=== PATIENT | female | born 1970 | race American Indian/Alaskan Native ===

== ENCOUNTER 2017-03-14 11:06 | Inpatient (IN) | payer OTHER ==
--- NOTE | 2017-03-14 12:17 | PDOC ---
History of Present Illness - General Chief Complaint: Diarrhea Stated Complaint: DIARRHEA Time Seen by Provider: 03/14/17 12:14 History Source: Patient Exam Limitations: No Limitations - History of Present Illness Travel History: No Initial Comments: 03/14/17 13:11 46F with pmh of hysterectomy, multiple hospitalizations for colitis and bowel obstructions presents to the ED for non-stop watery and bloody diarrhea since Monday with no change in frequency, wakes her up at night. No sick contact or family members with similar symptoms. [place] sweaty yesterday but not today. Took aleve and imodium with no relief. Had a 5 days course of Prednisone for 5 days for photosensitivity rash on the arm which stopped monday. Had an MRI pelvis with and without contrast done yesterday by her OBGYN Dr. Donald Cleveland for pelvic pain which showed "Bilateral hydrosalpinges, right larger than left. No evidence of mass. Post hysterectomy". Past History - Past Medical History Allergies/Adverse Reactions: Allergies Allergy/AdvReac Type Severity Reaction Status Date / Time No Known Allergies Allergy Verified 03/14/17 11:23 Home Medications: Ambulatory Orders Losartan Potassium 0 mg PO DAILY 03/14/17 Pantoprazole Sodium 40 mg PO DAILY 03/14/17 Asthma: Yes GI Disorders: Yes (colitis,sbo,gerd) HTN: Yes - Surgical History Abdominal Surgery: Yes (sbo) - Psycho/Social/Smoking Cessation Hx Anxiety: No Suicidal Ideation: No Smoking History: Never smoked Have you smoked in the past 12 months: No Information on smoking cessation initiated: No Hx Alcohol Use: No Drug/Substance Use Hx: No Substance Use Type: None Review of Systems - Review of Systems Constitutional: Yes: Diaphoresis, Fever, Weakness HEENTM: No: Symptoms Reported Respiratory: No: Symptoms reported Cardiac (ROS): No: Symptoms Reported ABD/GI: Yes: See HPI, Blood Streaked Bowels, Diarrhea, Rectal Bleeding, Abdominal cramping : No: Symptoms Reported Musculoskeletal: No: Symptoms Reported Endocrine: No: Symptoms Reported *Physical Exam - Vital Signs Last Vital Signs Temp Pulse Resp BP Pulse Ox 98.4 F 75 18 142/80 100 03/14/17 11:24 03/14/17 11:24 03/14/17 11:24 03/14/17 11:24 03/14/17 11:24 - Physical Exam General Appearance: Yes: Nourished, Appropriately Dressed, Mild Distress HEENT: positive: EOMI, MAEGAN, Normal ENT Inspection Neck: negative: Tender Respiratory/Chest: positive: Lungs Clear, Normal Breath Sounds. negative: Chest Tender, Respiratory Distress Cardiovascular: positive: Regular Rhythm, Regular Rate, S1, S2 Gastrointestinal/Abdominal: positive: Tender, Soft, Increased Bowel Sounds Integumentary: positive: Pale, Cold ED Treatment Course - LABORATORY CBC & Chemistry Diagram: 03/14/17 13:00 03/14/17 13:00 Medical Decision Making - Medical Decision Making 03/14/17 13:24 46F with pmh of recurent obstructions and colitis presents with profuse diarrhea since Monday. CT abdomen with IV and PO contrast indicates pancolitis No out of range WBC or hemoglobin/hematocrit Spoke to Dr. Magdaleno STARR who advised treating for infectious etiology, Flagyl and Cipro 03/14/17 17:33 03/14/17 18:[address] Kendall Tan, PGY2 IM resident who will come assess the patient for admission. *DC/Admit/Observation/Transfer Diagnosis at time of Disposition: Pancolitis - Discharge Dispostion Admit: Yes
[2017-03-14] MEDS ORDERED: LOPERAMIDE HCL 2 MG CAPSULE PO ONE (12:50)
[2017-03-14] MEDS ORDERED: SODIUM CHLORIDE 1,000 ML IV STA (12:52)
[2017-03-14] MEDS ORDERED: LOPERAMIDE HCL 2 MG CAPSULE ONE (13:00)
[2017-03-14 13:19] LABS: BASOPHIL 0.8 % (0-2.0); EOSINOPHIL 3.4 % (0-4.5); MCH 24.3 pg (25.7-33.7); MCHC 31.8 g/dl (32.0-36.0); MEAN CELL VOLUME 76.3 fl (80-96); MEAN PLT VOLUME 9.8 fl (7.5-11.1); NEUTROPHILS 54.7 % (42.8-82.8); PLATELET COUNT 305 K/MM3 (134-434); RDW 14.5 % (11.6-15.6); WHITE BLOOD COUNT 8.7 K/mm3 (4.0-10.0)
[2017-03-14 13:35] LABS: ALK PHOS 55 U/L (45-117); ANION GAP 7 (8-16); BILIRUBIN,TOTAL 0.6 mg/dL (0.2-1.0); CALCIUM 8.6 mg/dL (8.5-10.1); CO2 25 mmol/L (21-32); CREATININE 0.7 mg/dL (0.55-1.02); GLUCOSE,RANDOM 92 mg/dL (74-106); SGOT/AST 17 U/L (15-37); SGPT/ALT 31 U/L (12-78); TOT PROT 7.8 g/dl (6.4-8.2)
--- NOTE | 2017-03-14 13:41 | PDOC ---
Attending Attestation - Resident Resident Name: ClementeDavid - ED Attending Attestation I have performed the following: I have examined & evaluated the patient, The case was reviewed & discussed with the resident, I agree w/resident's findings & plan, Exceptions are as noted - HPI HPI: 03/14/17 13:38 46 F with h/o GERD, HTN, recurrent SBOs and recurrent episodes of colitis, presenting with 3 days of abdominal pain and diarrhea. Pt states that she began to have left sided abdominal pain 3 days ago. Shortly after, she started having diarrhea. Pt states that this is consistent with her prior episodes of colitis. Pt also endorses fevers at home. She felt very warm last night but did not take her temperature. Pt denies N/V. Denies abdominal distention. States that this pain is not similar to her SBO pain. Pt has had multiple surgeries in the past, including multiple LOAs for SBOs. - Physicial Exam PE: 03/14/17 13:39 "GENERAL: Awake, alert, and fully oriented, in no acute distress HEAD: No signs of trauma EYES: PERRLA, EOMI, sclera anicteric, conjunctiva clear ENT: Auricles normal inspection, hearing grossly normal, nares patent, oropharynx clear without exudates. Moist mucosa NECK: Normal ROM, supple, no lymphadenopathy, JVD, or masses LUNGS: Breath sounds equal, clear to auscultation bilaterally. No wheezes, and no crackles HEART: Regular rate and rhythm, normal S1 and S2, no murmurs, rubs or gallops ABDOMEN: Soft, LLQ TTP, normoactive bowel sounds. No guarding, no rebound. No masses EXTREMITIES: Normal range of motion, no edema. No clubbing or cyanosis. No cords, erythema, or tenderness NEUROLOGICAL: Cranial nerves II through XII grossly intact. Normal speech, normal gait SKIN: Warm, Dry, normal turgor, no rashes or lesions noted. " - Medical Decision Making 03/14/17 13:40 46 F with diarrhea and LLQ pain, concerning for recurrent colitis. - Labs, UA - CTAP
[2017-03-14 13:55] LABS: URINE APPEARANCE SLCLOUDY; URINE BILIRUBIN NEGATIVE (NEGATIVE); URINE BLOOD NEGATIVE (NEGATIVE); URINE COLOR YELLOW; URINE GLUCOSE (UA) NEGATIVE (NEGATIVE); URINE KETONE NEGATIVE (NEGATIVE); URINE LEUK ESTERASE NEGATIVE (NEGATIVE); URINE NITRITE NEGATIVE (NEGATIVE); URINE PROTEIN NEGATIVE (NEGATIVE); URINE UROBILINOGEN NEGATIVE mg/dL (0.2-1.0)
[2017-03-14] MEDS ORDERED: metroNIDAZOLE 250 MG TABLET PO ONE (17:08)
[2017-03-14] MEDS ORDERED: CIPROFLOXACIN 500 MG TABLET (RESTRICTED TO ID) PO ONE (17:23)
[2017-03-14] MEDS ORDERED: METRONIDAZOLE 500 MG PREMIXED 100 ML IVPB ONE ×2 (17:23→17:51)
[2017-03-14] MEDS ORDERED: morphine CARPU-JECT 4 MG/1 ML DISP.SYRIN IVPUSH PRN (17:57)
--- NOTE | 2017-03-14 18:09 | HP ---
CHIEF COMPLAINT: abdominal pain with diarrhea GI: Dr. Johnson- [facility] HISTORY OF PRESENT ILLNESS: 46 yo F with significant PMHx of recurrent colitis, h/o SBO, ovarian cyst and HTN presents with 3 day history of diarrhea. She has approx. 15 loose stools since Monday(03/12/17). She states that yesterday in evening she has one large bloody BM and subsequent BM's have a only mild spotting of blood. She endorses subjective fevers and chills. She has chronic history of colitis with 3 admissions in past year. Most recent at [facility] in September of 2016. She sees Dr. Johnson for GI at [facility]. She states last colonoscopy was one year ago and was significant for polypectomy( she says not pre-malignant?). She has not been worked up for colitis in past and not on any UC meds at this time. Denies CP,DEMPSEY, SOB, palpitations, N/V. ER course was notable for: (1)CT abdomen and pelvis shows Pancolotis. (2)Started on Cipro/Flagyl (3)Dr. Dolan GI consulted. Recent Travel:denies PAST MEDICAL HISTORY:recurrent colitis, HTN, GERD PAST SURGICAL HISTORY: Tubal ligation, hysterectomy, removal of adhesions(2010, 2012), Colonoscopy (2015) Social History: Smoking: denies Alcohol:socially Drugs: denies Family History: Allergies No Known Allergies Allergy (Verified 03/14/17 11:23) HOME MEDICATIONS: Home Medications Medication Instructions Recorded Losartan Potassium 0 mg PO DAILY 03/14/17 Pantoprazole Sodium 40 mg PO DAILY 03/14/17 REVIEW OF SYSTEMS CONSTITUTIONAL: fever, chills Absent: , diaphoresis, generalized weakness, malaise, loss of appetite, weight change HEENT: Absent: rhinorrhea, nasal congestion, throat pain, throat swelling, difficulty swallowing, mouth swelling, ear pain, eye pain, visual changes CARDIOVASCULAR: Absent: chest pain, syncope, palpitations, irregular heart rate, lightheadedness , peripheral edema RESPIRATORY: Absent: cough, shortness of breath, dyspnea with exertion, orthopnea, wheezing, stridor, hemoptysis GASTROINTESTINAL:abdominal pain, abdominal distension,diarrhea,melena Absent: , nausea, vomiting, constipation, , hematochezia GENITOURINARY: Absent: dysuria, frequency, urgency, hesitancy, hematuria, flank pain, genital pain MUSCULOSKELETAL: Absent: myalgia, arthralgia, joint swelling, back pain, neck pain SKIN: Absent: rash, itching, pallor HEMATOLOGIC/IMMUNOLOGIC: Absent: easy bleeding, easy bruising, lymphadenopathy, frequent infections ENDOCRINE: Absent: unexplained weight gain, unexplained weight loss, heat intolerance, cold intolerance NEUROLOGIC: Absent: headache, focal weakness or paresthesias, dizziness, unsteady gait, seizure, mental status changes, bladder or bowel incontinence PSYCHIATRIC: Absent: anxiety, depression, suicidal or homicidal ideation, hallucinations. PHYSICAL EXAMINATION Vital Signs - 24 hr 03/14/17 11:24 Temperature 98.4 F Pulse Rate 75 Respiratory 18 Rate Blood Pressure 142/80 O2 Sat by Pulse 100 Oximetry (%) GENERAL: Awake, alert, and fully oriented, mild distress. HEAD: Normal with no signs of trauma. EYES: Pupils equal, round and reactive to light, extraocular movements intact, sclera anicteric, conjunctiva clear. No lid lag. EARS, NOSE, THROAT: Ears normal, nares patent, oropharynx clear without exudates. Moist mucous membranes. NECK: Normal range of motion, supple without lymphadenopathy, JVD, or masses. LUNGS: Breath sounds equal, clear to auscultation bilaterally. No wheezes, and no crackles. No accessory muscle use. HEART: Regular rate and rhythm, normal S1 and S2 without murmur, rub or gallop. ABDOMEN: Soft, LLQ tenderness(+)rebound , mildly distended, normoactive bowel sounds, (+) guarding, , no masses. No hepatomegaly or splenomegaly. MUSCULOSKELETAL: Normal range of motion at all joints. No bony deformities or tenderness. No CVA tenderness. UPPER EXTREMITIES: 2+ pulses, warm, well-perfused. No cyanosis. No clubbing. No peripheral edema. LOWER EXTREMITIES: 2+ pulses, warm, well-perfused. No calf tenderness. No peripheral edema. NEUROLOGICAL: Cranial nerves II-XII intact. Normal speech. gait not observed. . PSYCHIATRIC: Cooperative. Good eye contact. Appropriate mood and affect. SKIN: Warm, dry, normal turgor, no rashes or lesions noted, normal capillary refill. Laboratory Results - last 24 hr 03/14/17 03/14/17 03/14/17 13:00 13:00 13:00 WBC 8.7 RBC 5.11 Hgb 12.4 Hct 39.0 MCV 76.3 L MCH 24.3 L MCHC 31.8 L RDW 14.5 Plt Count 305 MPV 9.8 Neutrophils % 54.7 Lymphocytes % 33.8 Monocytes % 7.3 Eosinophils % 3.4 Basophils % 0.8 Sodium 137 Potassium 4.4 Chloride 105 Carbon Dioxide 25 Anion Gap 7 L BUN 16 Creatinine 0.7 Creat Clearance w eGFR > 60 Random Glucose 92 Calcium 8.6 Total Bilirubin 0.6 AST 17 ALT 31 Alkaline Phosphatase 55 Total Protein 7.8 Albumin 4.0 Urine Color Yellow Urine Appearance Slcloudy Urine pH 5.0 Urine Protein Negative Urine Glucose (UA) Negative Urine Ketones Negative Urine Blood Negative Urine Nitrite Negative Urine Bilirubin Negative Urine Urobilinogen Negative Ur Leukocyte Esterase Negative IMAGING: * EXAM#: TYPE/EXAM: RESULT: [id number] CT/ABDOMEN PELVIS CT WITH CONTR Abdomen and pelvis CT (with contrast) Clinical information: abdominal pain, diarrhea Multiplanar imaging was performed utilizing intravenous and oral contrast. No prior imaging studies are available at this facility for direct comparison. Continuous concentric wall thickening is noted involving the length of the colon including the rectum consistent with colitis. There is possible mild involvement of the ileum. No definite pericolonic/perienteric edema or fluid accumulation is seen. There is no evidence of abscess, pneumoperitoneum, free intraperitoneal fluid or bowel obstruction. Contiguous 4.9 x 3.3 cm and 3.3 x 2.7 cm cystic structures are noted within the right paramedian aspect of the pelvic cul-de-sac. 3.3 x 2.3 cm left adnexal cyst is visualized. There is no obvious associated soft tissue nodularity or thickened internal septation. Status post hysterectomy. There is no definite CT evidence of acute appendicitis. The liver, spleen, pancreas, gallbladder, adrenal glands and kidneys demonstrate no discrete abnormality. There is no aortic aneurysm. No definite lymphadenopathy is identified. Impression: Pancolitis is identified as discussed above. There is also equivocal mild involvement of the ileum. Contiguous cystic structures are seen within the right paramedian aspect of the pelvic cul-de-sac. Correlation with nonemergent sonography is suggested. Reported By: Fili Ponce MD 03/14/17 0304 ASSESSMENT/PLAN: 46 yo f with signifcant PMHx of recurrent colitis, GERD and HTN admitted for pancolitis seen on abdominal CT. Problem List - Problem (1) Pancolitis Assessment/Plan: * This is chronic issue for which she has seen GI in past but no difinitive diagnosis with biopsy. * Consulted Dr. Dolan for GI * Kept NPO for possible colonoscopy with biopsy * Pain control with Morphine 2mg IV Q4HPRN * IVF with D5 1/2NS @ 83ml/hr. * Will continue antibiotics with Levaquin and Flagyl for now * stool for Ova and parasite * Stool studies pending. * Zofran for nausea. (2) HTN (hypertension) Assessment/Plan: * Held Losartan for now as patient is NPO (3) GERD (gastroesophageal reflux disease) Assessment/Plan: * Will give protonix 40mg IV daily * (4) DVT prophylaxis Assessment/Plan: * Bilateral SCD's * Heparin 5000U subQ for possible colonoscopy tomorrow. Visit type - Emergency Visit Emergency Visit: Yes ED Registration Date: 03/14/17 Care time: The patient presented to the Emergency Department on the above date and was hospitalized for further evaluation of their emergent condition. - New Patient This patient is new to me today: Yes Date on this admission: 03/15/17 - Critical Care Critical Care patient: No
[2017-03-14] MEDS: DEXTROSE 5%-0.45% SALINE 1,000 ML IV SCH (18:51)
--- NOTE | 2017-03-14 19:52 | PN ---
Teaching Attending Note Name of Resident: Kendall Tan ATTENDING PHYSICIAN STATEMENT I saw and evaluated the patient. I reviewed the resident's note and discussed the case with the resident. I agree with the resident's findings and plan as documented. SUBJECTIVE: 46 yo F with Pmhx of recurrent colitis, h/o SBO, ovarian cysts, and HTN pw. Diarrhea. States diarrhea started 3 days ago. States she has had 16 movements. Last [place] was 1 yr ago and according to pt. she has benign polyps. Has not been worked up for Colitis. Follow dmitriy Johnson at [facility]. OBJECTIVE: Physical: VS: Vital Signs Period Temp Pulse Resp BP Sys/Harvey Pulse Ox Last 24 Hr 98.4 F 75-78 18-18 140-142/68-80 99-100 GEN: NAd, Resting in bed HEENT: NCAT, PERRL, Throat without erythema or exudates CARD: RRR S1, S2 RESP: CTAB ABD: BSx4, NTD to palpation EXT: - C/C/e CBCD WBC 8.7 K/mm3 (4.0-10.0) 03/14/17 13:00 RBC 5.11 M/mm3 (3.60-5.2) 03/14/17 13:00 Hgb 12.4 GM/dL (10.7-15.3) 03/14/17 13:00 Hct 39.0 % (32.4-45.2) 03/14/17 13:00 MCV 76.3 fl (80-96) L 03/14/17 13:00 MCHC 31.8 g/dl (32.0-36.0) L 03/14/17 13:00 RDW 14.5 % (11.6-15.6) 03/14/17 13:00 Plt Count 305 K/MM3 (134-434) 03/14/17 13:00 MPV 9.8 fl (7.5-11.1) 03/14/17 13:00 CMP Sodium 137 mmol/L (136-145) 03/14/17 13:00 Potassium 4.4 mmol/L (3.5-5.1) 03/14/17 13:00 Chloride 105 mmol/L (98-107) 03/14/17 13:00 Carbon Dioxide 25 mmol/L (21-32) 03/14/17 13:00 Anion Gap 7 (8-16) L 03/14/17 13:00 BUN 16 mg/dL (7-18) 03/14/17 13:00 Creatinine 0.7 mg/dL (0.55-1.02) 03/14/17 13:00 Creat Clearance w eGFR > 60 (>60) 03/14/17 13:00 Random Glucose 92 mg/dL (74-106) 03/14/17 13:00 Calcium 8.6 mg/dL (8.5-10.1) 03/14/17 13:00 Total Bilirubin 0.6 mg/dL (0.2-1.0) 03/14/17 13:00 AST 17 U/L (15-37) 03/14/17 13:00 ALT 31 U/L (12-78) 03/14/17 13:00 Alkaline Phosphatase 55 U/L (45-117) 03/14/17 13:00 Total Protein 7.8 g/dl (6.4-8.2) 03/14/17 13:00 Albumin 4.0 g/dl (3.4-5.0) 03/14/17 13:00 IMAGING: * EXAM#: TYPE/EXAM: RESULT: [id number] CT/ABDOMEN PELVIS CT WITH CONTR Abdomen and pelvis CT (with contrast) Clinical information: abdominal pain, diarrhea Multiplanar imaging was performed utilizing intravenous and oral contrast. No prior imaging studies are available at this facility for direct comparison. Continuous concentric wall thickening is noted involving the length of the colon including the rectum consistent with colitis. There is possible mild involvement of the ileum. No definite pericolonic/perienteric edema or fluid accumulation is seen. There is no evidence of abscess, pneumoperitoneum, free intraperitoneal fluid or bowel obstruction. Contiguous 4.9 x 3.3 cm and 3.3 x 2.7 cm cystic structures are noted within the right paramedian aspect of the pelvic cul-de-sac. 3.3 x 2.3 cm left adnexal cyst is visualized. There is no obvious associated soft tissue nodularity or thickened internal septation. Status post hysterectomy. There is no definite CT evidence of acute appendicitis. The liver, spleen, pancreas, gallbladder, adrenal glands and kidneys demonstrate no discrete abnormality. There is no aortic aneurysm. No definite lymphadenopathy is identified. Impression: Pancolitis is identified as discussed above. There is also equivocal mild involvement of the ileum. Contiguous cystic structures are seen within the right paramedian aspect of the pelvic cul-de-sac. Correlation with nonemergent sonography is suggested. Reported By: Fili Ponce MD 03/14/17 0637 * Ambulatory Orders Losartan Potassium 0 mg PO DAILY 03/14/17 Pantoprazole Sodium 40 mg PO DAILY 03/14/17 ASSESSMENT AND PLAN: 46 F with hx of recurrent colitis who presents with diarrhea found to have mckeon- colitis 1.) Pancolitis - Levaquin/Flagyl - Follow Stool o&P, Cx and C. Diff - IVF - NPO - GI consulted - Type & Screen 2.) HTN - C/w Home meds 3.) GERD - C/w Protonix 4.) Dvt Ppx - Low Risk- Ambulate Place in Med-sx
[2017-03-14] MEDS ORDERED: morphine CARPU-JECT 4 MG/1 ML DISP.SYRIN ONE (20:11)
[2017-03-14] MEDS: HEPARIN NA (PORCINE) 5,000 UNITS/ML 1ML VIAL SQ SCH (22:05)
[2017-03-14 23:25] VITALS: BMI 33.8
[2017-03-15] MEDS: METRONIDAZOLE 500 MG PREMIXED 100 ML IVPB SCH ×3 (02:43→18:15)
[2017-03-15] MEDS: DEXTROSE 5%-0.45% SALINE 1,000 ML IV SCH ×2 (06:22→20:00)
[2017-03-15 07:29] LABS: BASOPHIL 0.6 % (0-2.0); EOSINOPHIL 5.9 % (0-4.5); MCH 24.4 pg (25.7-33.7); MCHC 32.2 g/dl (32.0-36.0); MEAN CELL VOLUME 75.7 fl (80-96); MEAN PLT VOLUME 9.5 fl (7.5-11.1); NEUTROPHILS 48.6 % (42.8-82.8); PLATELET COUNT 234 K/MM3 (134-434); RDW 14.7 % (11.6-15.6); WHITE BLOOD COUNT 6.6 K/mm3 (4.0-10.0)
[2017-03-15 08:07] LABS: ALBUMIN 3.1 g/dl (3.4-5.0); ANION GAP 8 (8-16); CALCIUM 7.5 mg/dL (8.5-10.1); CO2 26 mmol/L (21-32); GLUCOSE,RANDOM 101 mg/dL (74-106); MAGNESIUM 2.2 mg/dL (1.8-2.4)
[2017-03-15 08:11] LABS: ALK PHOS 43 U/L (45-117); BILIRUBIN,TOTAL 0.7 mg/dL (0.2-1.0); CREATININE 0.6 mg/dL (0.55-1.02); PHOSPHOROUS 2.5 mg/dL (2.5-4.9); SGOT/AST 14 U/L (15-37); SGPT/ALT 32 U/L (12-78); TOT PROT 6.2 g/dl (6.4-8.2)
--- NOTE | 2017-03-15 10:24 | CONSULT ---
Consult Consult Specialty:: GI Referred by:: Arian Reason for Consultation:: acute diarrhea - History of Present Illness History of Present Illness: 46yo woman with PMH of colitis, SBO s/p lysis of adhesions x2, GERD, and HTN ( dx 3m ago) who presents after acute onset of diarrhea 3 days ago. On Monday evening she started to have abdominal cramps. Early Monday morning she was awoken by watery diarrhea. Throughout the day (03/13) she had 15xBMs along with subjective fever, chills, and diaphoresis. Two nights ago (mon, 03/13) she had 1x bloody BM in which she could see bradly blood in the toilet and on the tissue paper. The following BMs had only "flecks of blood". She endorses mild nausea, but continued to eat while at home. The bloody diarrhea prompted her visit to the ED. She denies any recent antibiotic use. No sick contacts and no one in the house has/had diarrhea. She was on vacation in [place] in January and reports getting a "sun rash". She was given a course of prednisone that she completed on Monday (03/11). Denies dysuria, frequency, or hesitation. - History Source History Provided By: Patient, Medical Record Limitations to Obtaining History: No Limitations - Past Medical History Pulmonary: Yes: Asthma (no asmtha releated hospitalizations, Albuterol inhaler PRN) Gastrointestinal: Yes: GERD, Other (colitis (2 prior hospitalizations at [facility]); SBO (9 related hospitalizations and 2 surgeries for adhesion takedown) ) Reproductive: Yes: Fibroids - Past Surgical History Past Surgical History: Yes: Colonoscopy, Hysterectomy, Tubal Ligation Additional Surgical History: -colonoscopy with polpectomy (benign) - 2016. - lysis of adhesions (2010, 2012). -tubal ligation. -ovarian cyst removal. - DIPTI -2005 - Alcohol/Substance Use Hx Alcohol Use: No - Smoking History Smoking history: Never smoked Have you smoked in the past 12 months: No Home Medications - Allergies Allergies/Adverse Reactions: Allergies Allergy/AdvReac Type Severity Reaction Status Date / Time No Known Allergies Allergy Verified 03/14/17 11:23 - Home Medications Home Medications: Ambulatory Orders Losartan Potassium 0 mg PO DAILY 03/14/17 Pantoprazole Sodium 40 mg PO DAILY 03/14/17 Family Disease History - Family Disease History Family History: Unremarkable Other Family History: Father with kidney cancer Review of Systems - Review of Systems Constitutional: reports: Chills, Diaphoresis, Fever Eyes: reports: No Symptoms HENT: reports: No Symptoms Neck: reports: No Symptoms Cardiovascular: reports: No Symptoms Respiratory: reports: No Symptoms Gastrointestinal: reports: Abdominal Pain, Diarrhea, Other (BRBPR) Physical Exam Vital Signs: Vital Signs Temperature 98.0 F 03/15/17 14:00 Pulse Rate 73 03/15/17 14:00 Respiratory Rate 17 03/15/17 14:00 Blood Pressure 112/54 03/15/17 06:00 O2 Sat by Pulse Oximetry (%) 98 03/15/17 09:00 Constitutional: Yes: Well Nourished, No Distress, Calm Eyes: No: Sclera Icterus Cardiovascular: Yes: Regular Rate and Rhythm. No: Gallop, Murmur Respiratory: Yes: CTA Bilaterally Gastrointestinal: Yes: Soft, Abdomen, Obese, Hyperactive Bowel Sounds, Tenderness (L>R). No: Distention Extremities: Yes: Other (UE: b/l papular rash L anterior ankle - tender to palpation w/o erythema, warmth, bruising or rash) Edema: No Peripheral Pulses WNL: Yes (2+ DP/PT bilaterally) Neurological: Yes: Alert, Oriented Labs: CBC, BMP 03/15/17 06:35 03/15/17 06:35 Laboratory Tests 03/14/17 03/14/17 18:40 18:40 ESR 7 C-Reactive Protein 2.3 H Laboratory Tests 03/14/17 03/15/17 13:00 06:35 Calcium 8.6 7.5 L Phosphorus 2.5 Magnesium 2.2 Total Bilirubin 0.6 0.7 AST 17 14 L ALT 31 32 Alkaline Phosphatase 55 43 L D Total Protein 7.8 6.2 L D Albumin 4.0 3.1 L D Urine Color Yellow 03/14/17 13:00 Urine Appearance Slcloudy 03/14/17 13:00 Urine pH 5.0 (5.0-8.0) 03/14/17 13:00 Ur Specific [place] 1.025 (1.005-1.025) 03/14/17 13:00 Urine Protein Negative (NEGATIVE) 03/14/17 13:00 Urine Glucose (UA) Negative (NEGATIVE) 03/14/17 13:00 Urine Ketones Negative (NEGATIVE) 03/14/17 13:00 Urine Blood Negative (NEGATIVE) 03/14/17 13:00 Urine Nitrite Negative (NEGATIVE) 03/14/17 13:00 Urine Bilirubin Negative (NEGATIVE) 03/14/17 13:00 Ur Leukocyte Esterase Negative (NEGATIVE) 03/14/17 13:00 Imaging - Results Cat Scan: Image Reviewed (Abd/pelvis CT w/contrast: concentric wall thickening through colon including recturm c/w colitis. Possible involvement of ileum. No definitive pericolonic/perienteric edema or fluid accumulation is seen. Impression: pancolitis with equivocal involvement of ileum. L adnexal mass.) Assessment/Plan Assessment: 46yo woman who presents acute colitis 2/2 to inflammatory or infectious etiology. Plan: -Advance to Low residue diet -Repeat H/H in evening -F/u Stool studies: C dif toxin/Ag, culture, O&P -Continue Flagyl and levoquin -Trend ESR and CRP d/w Dr. Emerita Noriega MD PGY-1 Visit type - Emergency Visit Emergency Visit: No - New Patient This patient is new to me today: Yes Date on this admission: 03/15/17 - Critical Care Critical Care patient: No
[2017-03-15] MEDS: HEPARIN NA (PORCINE) 5,000 UNITS/ML 1ML VIAL SQ SCH ×2 (10:27→22:17)
[2017-03-15 13:51] LABS: MCH 24.2 pg (25.7-33.7); MCHC 31.8 g/dl (32.0-36.0); MEAN CELL VOLUME 75.8 fl (80-96); MEAN PLT VOLUME 9.5 fl (7.5-11.1); PLATELET COUNT 251 K/MM3 (134-434); RDW 14.6 % (11.6-15.6); WHITE BLOOD COUNT 6.4 K/mm3 (4.0-10.0)
--- NOTE | 2017-03-15 14:20 | PN ---
Teaching Attending Note Name of Resident: Frieda Palencia ATTENDING PHYSICIAN STATEMENT I saw and evaluated the patient. I reviewed the resident's note and discussed the case with the resident. I agree with the resident's findings and plan as documented. SUBJECTIVE:mild nausea but much improvement in abdominal pain. states this is her 3rd episode of colitis. that shes been followed by GI doctor in [place] and had colonoscopy last year. had bx of polyp and was told it was benign but is unaware if they took any other bx or if blood workup was done for cause of colitis. states she always improved after abx therapy. also had multiple SBO which were due to adhesions from previous surgeries but no surgery to fix obstruction and no colectomy performed. denies any recent diet changes or medications. admits to fevers at home with 10 BM per day intermittently bloody with tenesmus. last BM was this AM and was loose but more formed. has problems of constipation at home which improves with miralax. family hx of thyroid disorder denies other autoimmune diseases OBJECTIVE: Last Vital Signs Temp Pulse Resp BP Pulse Ox 98.0 F 73 17 112/54 98 03/15/17 14:00 03/15/17 14:00 03/15/17 14:00 03/15/17 06:00 03/15/17 09:00 General NAD CV S1 S2 RRR no murmur/rub/gallop Lungs CTA B/L no wheezing/rales/rhonchi abdomen soft hyperactive BS + LUQ/LLQ tenderness not distended ASSESSMENT AND PLAN: 46yo F wtih PMH recurrent colitis, SBO and HTN presented to the ER with bloody diarrhea and abdominal pain. 1. Pancolitis- concern for IBD given multiple episodes. ESR normal CRP mildly elevated. significant improvement. informed need for stool studies. on levaquin/ flagyl day 2, IVF. GI consulted. cont symptomatic treatment for now, nausea nd pain control. will place call to GI specialist for workup already done 2. Acute normocytic anemia- likely dilutional. hgb on repeat is stable 3. HTN- currently normotensive off medications. hold oral agents for now 4. DVT ppx- hep sq
[2017-03-15] MEDS ORDERED: SODIUM CHLORIDE 100 ML IVPB ONE (15:38)
[2017-03-15] MEDS ORDERED: PANTOPRAZOLE SODIUM 40 MG VIAL ONE (15:38)
[2017-03-15] MEDS ORDERED: ONDANSETRON 4 MG TABLET PO PRN (15:39)
[2017-03-15] MEDS: PANTOPRAZOLE SODIUM 40 MG in SODIUM CHLORIDE 100 ML IVPB SCH (15:52)
--- NOTE | 2017-03-15 15:55 | PN ---
Physical Exam: SUBJECTIVE: Patient seen and examined at bedside today. States that she is feeling much better- still has LUQ, LLQ pain and has had 1 nonbloody BM since yesterday. OBJECTIVE: Vital Signs Period Temp Pulse Resp BP Sys/Harvey Pulse Ox Last 24 Hr 98.0 F-98.7 F 73-82 14-20 112-140/54-78 98-99 GENERAL: The patient is awake, alert, and fully oriented, in no acute distress. HEAD: Normal with no signs of trauma. EYES: PERRL, extraocular movements intact, sclera anicteric, conjunctiva clear. NECK: Trachea midline, full range of motion, supple. LUNGS: Breath sounds equal, clear to auscultation bilaterally, no wheezes, no crackles, no accessory muscle use. HEART: Regular rate and rhythm, S1, S2 without murmur, rub or gallop. ABDOMEN:tender to palpation in LUQ, LLQ, normoactive bowel sounds, no guarding, no rebound EXTREMITIES: 2+ posterior tibial pulses, warm, well-perfused, no edema. NEUROLOGICAL: Cranial nerves II through XII grossly intact. Laboratory Results - last 24 hr 03/14/17 03/14/17 03/15/17 18:40 18:40 06:35 WBC 6.6 RBC 4.47 Hgb 10.9 D Hct 33.8 MCV 75.7 L MCH 24.4 L MCHC 32.2 RDW 14.7 Plt Count 234 D MPV 9.5 Neutrophils % 48.6 Lymphocytes % 37.0 Monocytes % 7.9 Eosinophils % 5.9 H Basophils % 0.6 ESR 7 Sodium Potassium Chloride Carbon Dioxide Anion Gap BUN Creatinine Creat Clearance w eGFR Random Glucose Calcium Phosphorus Magnesium Total Bilirubin AST ALT Alkaline Phosphatase C-Reactive Protein 2.3 H Total Protein Albumin Blood Type Antibody Screen 03/15/17 03/15/17 03/15/17 06:35 13:38 13:38 WBC 6.4 RBC 4.57 Hgb 11.0 Hct 34.6 MCV 75.8 L MCH 24.2 L MCHC 31.8 L RDW 14.6 Plt Count 251 MPV 9.5 Neutrophils % Lymphocytes % Monocytes % Eosinophils % Basophils % ESR Sodium 139 Potassium 3.9 Chloride 105 Carbon Dioxide 26 Anion Gap 8 BUN 10 D Creatinine 0.6 Creat Clearance w eGFR > 60 Random Glucose 101 Calcium 7.5 L Phosphorus 2.5 Magnesium 2.2 Total Bilirubin 0.7 AST 14 L ALT 32 Alkaline Phosphatase 43 L D C-Reactive Protein Total Protein 6.2 L D Albumin 3.1 L D Blood Type A NEGATIVE Antibody Screen Negative 03/15/17 14:10 WBC RBC Hgb Hct MCV MCH MCHC RDW Plt Count MPV Neutrophils % Lymphocytes % Monocytes % Eosinophils % Basophils % ESR Sodium Potassium Chloride Carbon Dioxide Anion Gap BUN Creatinine Creat Clearance w eGFR Random Glucose Calcium Phosphorus Magnesium Total Bilirubin AST ALT Alkaline Phosphatase C-Reactive Protein Total Protein Albumin Blood Type A NEGATIVE Antibody Screen Active Medications Generic Name Dose Route Start Last Admin Trade Name Freq PRN Reason Stop Dose Admin Heparin Sodium (Porcine) 5,000 unit 03/14/17 22:00 03/15/17 10:27 Heparin - SQ 5,000 unit BID BLAINE Administration Dextrose/Sodium Chloride 1,000 mls @ 83 mls/hr 03/14/17 18:00 03/15/17 06:22 D5-1/2ns - IV 83 mls/hr ASDIR BLAINE Administration Levofloxacin 100 mls @ 100 mls/hr 03/15/17 17:00 Levaquin 500 Mg Premixed Ivpb - IVPB DAILY BLAINE Metronidazole 100 mls @ 100 mls/hr 03/15/17 02:00 03/15/17 10:27 Flagyl 500mg Premixed Ivpb - IVPB 100 mls/hr Q8H-IV BLAINE Administration Pantoprazole Sodium 40 mg/ 100 mls @ 200 mls/hr 03/15/17 15:00 Sodium Chloride IVPB DAILY BLAINE Morphine Sulfate 2 mg 03/14/17 17:57 03/14/17 20:24 Morphine Injection - IVPUSH 2 mg Q4H PRN Administration PAIN ASSESSMENT/PLAN: 46 y/o F with PMH of recurrent colitis, h/o SBO, ovarian cyst and HTN, who was admitted with 3 day history of diarrhea. Pt admitted for pancolitis. #Pancolitis -Abdomen/pelvis CT: continuous concentric wall thickening involving length of colon, including rectum- consistent with colitis, mild ileal involvement, cystic structures in pelvic cul-de-sac -Continue Levaquin 500mg/Flagyl 500mg (Day2) -elevated CRP 2.3. reveals inflammation -Following up with primary GI from [facility], Dr. Johnson to get additional records -On Zofran PRN for nausea #HTN-controlled -will call pharmacy to find out dosage of home losartan dosage, will hold for now since HTN controlled #DVT prophylaxis Heparin 5000 SQ BID F/E/N D5 08/01 NS NPO Monitor electrolytes Visit type - Emergency Visit Emergency Visit: No - New Patient This patient is new to me today: Yes Date on this admission: 03/15/17 - Critical Care Critical Care patient: No
--- NOTE | 2017-03-15 17:16 | PN ---
Teaching Attending Note Name of Resident: Melissa Noriega ATTENDING PHYSICIAN STATEMENT I saw and evaluated the patient. I reviewed the resident's note and discussed the case with the resident. I agree with the resident's findings and plan as documented. SUBJECTIVE: 46F with acute onset of diarrhea starting monday. Noted blood in toilet monday after multiple bowel movements Prior to that uneventful trip to [place]: she did develop a rash on her arms and was treated with prednisone (completed course this past monday) Has a history of ? previous [facility] episodes[facility] and believes that she had a colonoscopy in : no colitis but may have had polyps. Told f/u 3-5 years OBJECTIVE: Afebrile Anicteric Hrt RRR Lungs CTA b/l Abd: Sft, mild TTP left abdomen > right. No guarding/rebound Ext: TTP left anterior ankle without swelling / induration / rash. papular like rash on UE ASSESSMENT Acute diarrhea: Inflammatory vs. Infectious Rash on UE: ? reaction from sun exposure / alternate etiology Left anterior ankle pain PLAN: Stool for O&P, culture, C. Diff Low residue diet Abx for now Monitor clinically. If no continued improvement and pending stool studies may need flex sig to evaluate further Obtain records from previous GI Outpatient f/u w/ Dr. Dolan / [facility] [phone]
[2017-03-15] MEDS: LEVOFLOXACIN 500 MG IVPB 100 ML IVPB SCH (17:22)
[2017-03-15] MEDS ORDERED: ONDANSETRON 4 MG/2 ML VIAL IVPUSH PRN (19:02)
[2017-03-16] MEDS: METRONIDAZOLE 500 MG PREMIXED 100 ML IVPB SCH ×2 (02:13→10:29)
[2017-03-16] MEDS: DEXTROSE 5%-0.45% SALINE 1,000 ML IV SCH ×3 (06:50→19:38)
[2017-03-16 08:53] LABS: MCH 25.1 pg (25.7-33.7); MCHC 33.3 g/dl (32.0-36.0); MEAN CELL VOLUME 75.4 fl (80-96); MEAN PLT VOLUME 10.1 fl (7.5-11.1); PLATELET COUNT 277 K/MM3 (134-434); RDW 14.4 % (11.6-15.6); WHITE BLOOD COUNT 5.3 K/mm3 (4.0-10.0)
[2017-03-16 08:59] LABS: ANION GAP 7 (8-16); CALCIUM 7.6 mg/dL (8.5-10.1); CO2 25 mmol/L (21-32); GLUCOSE,RANDOM 108 mg/dL (74-106)
[2017-03-16 09:01] LABS: CREATININE 0.6 mg/dL (0.55-1.02)
[2017-03-16] MEDS: LEVOFLOXACIN 500 MG IVPB 100 ML IVPB SCH (09:03)
--- NOTE | 2017-03-16 10:16 | PN ---
Progress Note, Physician Chief Complaint: 24H Events: -yesterday: did not tolerate dinner, +n/v -O/N: no events -AM: no n/v/abdominal pains; decreased brian, ate few bites of breakfast; 1x small loose BM - Current Medication List Current Medications: Active Medications Heparin Sodium (Porcine) (Heparin -) 5,000 unit SQ BID [facility] Last Admin: 03/15/17 22:17 Dose: 5,000 unit Dextrose/Sodium Chloride (D5-1/2ns -) 1,000 mls @ 83 mls/hr IV ASDIR [facility] Last Admin: 03/16/17 06:50 Dose: 83 mls/hr Levofloxacin (Levaquin 500 Mg Premixed Ivpb -) 100 mls @ 100 mls/hr IVPB DAILY [facility] Last Admin: 03/16/17 09:03 Dose: 100 mls/hr Metronidazole (Flagyl 500mg Premixed Ivpb -) 100 mls @ 100 mls/hr IVPB Q8H-IV [facility] Last Admin: 03/16/17 02:13 Dose: 100 mls/hr Pantoprazole Sodium 40 mg/ (Sodium Chloride) 100 mls @ 200 mls/hr IVPB DAILY [facility] Last Admin: 03/15/17 15:52 Dose: 200 mls/hr Morphine Sulfate (Morphine Injection -) 2 mg IVPUSH Q4H PRN PRN Reason: PAIN Last Admin: 03/14/17 20:24 Dose: 2 mg Ondansetron HCl (Zofran Injection) 4 mg IVPUSH Q6H PRN PRN Reason: NAUSEA AND/OR VOMITING Last Admin: 03/15/17 22:34 Dose: 4 mg - Objective Vital Signs: Vital Signs Temperature 98.4 F 03/16/17 06:28 Pulse Rate 77 03/16/17 10:00 Respiratory Rate 20 03/16/17 10:00 Blood Pressure 126/68 03/16/17 10:00 O2 Sat by Pulse Oximetry (%) 98 on RA 03/15/17 10:00 Constitutional: Yes: Well Nourished, No Distress Eyes: No: Sclera Icterus Cardiovascular: Yes: Regular Rate and Rhythm. No: Murmur, Rub Respiratory: Yes: CTA Bilaterally Gastrointestinal: Yes: Normal Bowel Sounds, Abdomen, Obese, Tenderness (L>R). No: Distention Extremities: Yes: Other (L anterior ankle ttp) Edema: No Peripheral Pulses WNL: Yes Labs: CBC, BMP 03/16/17 07:30 03/16/17 07:30 Impression/Plan Impression/Plan: Assessment: 46yo woman who presents acute colitis 2/2 to inflammatory or infectious etiology. Plan: -Continue Low residue diet -C dif stool toxin & Ag sent -Stool culture - ordered -Continue Flagyl and levoquin -Trend ESR and CRP d/w Dr. Emerita Noriega MD PGY-1 Visit type - Emergency Visit Emergency Visit: No - New Patient This patient is new to me today: No - Critical Care Critical Care patient: No
[2017-03-16] MEDS ORDERED: PANTOPRAZOLE SODIUM 40 MG VIAL ONE (10:25)
[2017-03-16] MEDS ORDERED: SODIUM CHLORIDE 100 ML IVPB ONE (10:25)
[2017-03-16] MEDS: HEPARIN NA (PORCINE) 5,000 UNITS/ML 1ML VIAL SQ SCH ×2 (10:28→21:37)
[2017-03-16] MEDS: PANTOPRAZOLE SODIUM 40 MG in SODIUM CHLORIDE 100 ML IVPB SCH (10:28)
--- NOTE | 2017-03-16 14:37 | PN ---
Teaching Attending Note Name of Resident: Melissa Noriega ATTENDING PHYSICIAN STATEMENT: I saw and evaluated the patient. I reviewed the resident's note and discussed the case with the resident. I agree with the resident's findings and plan as documented. SUBJECTIVE: No acute events overnight Diminished appetitie this morning w/ nausea and vomiting Had 2 loos BM's today, non-bloody OBJECTIVE: Anicteric Abd: + BS (hyperactive), soft, mild TTP L>R abdomen. No guarding C. Diff negative ASSESSMENT: Acute colitis / diarrhea Clinically some improvement, still with abdominal cramping / loose BM's less frequent however PLAN: Awaiting stool studies Seemed to tolerate lunch. Continue current diet for now Ordered stool O&P If no improvement will need flex sig for further intraluminal evaluation
--- NOTE | 2017-03-16 14:54 | EKG ---
Test Reason : Blood Pressure : / mmHG Vent. Rate : 077 BPM Atrial Rate : 077 BPM P-R Int : 130 ms QRS Dur : 084 ms QT Int : 372 ms P-R-T Axes : 052 026 001 degrees QTc Int : 420 ms NORMAL SINUS RHYTHM NORMAL ECG NO PREVIOUS ECGS AVAILABLE Confirmed by YONY GONSALEZ MD ([id number]) on 03/16/2017 2:54:10 PM Referred By: DR. PERRY Confirmed By:YONY GONSALEZ MD
--- NOTE | 2017-03-16 15:48 | PN ---
Teaching Attending Note Name of Resident: Frieda Palencia ATTENDING PHYSICIAN STATEMENT I saw and evaluated the patient. I reviewed the resident's note and discussed the case with the resident. I agree with the resident's findings and plan as documented. SUBJECTIVE:2 episodes of non bloody emesis last night after drinking clear broth. assoc abdominal pain. slight improvement. diet was advanced to regular diet this AM but only took a single bite. 1 loose BM this AM non bloody. denies CP, SOB, fever, chills, Vomiting OBJECTIVE: Last Vital Signs Temp Pulse Resp BP Pulse Ox 98.0 F 82 17 109/64 95 03/16/17 14:00 03/16/17 14:00 03/16/17 14:00 03/16/17 14:00 03/15/17 20:48 General NAD CV S1 S2 RRR no murmur/rub/gallop Lungs CTA B/L no wheezing/rales/rhonchi abdomen soft hyperactive BS + LUQ/LLQ tenderness not distended ASSESSMENT AND PLAN: 46yo F wtih PMH recurrent colitis, SBO and HTN presented to the ER with bloody diarrhea and abdominal pain. 1. Pancolitis- concern for IBD given multiple episodes. ESR normal CRP mildly elevated. vomiting last night but now resolved. will give another trial of regular diet for lunch if unable to tolerate and continues to have abdominal pain will place NPO for possible flex sig. Stool studies sent this am. will f/ u. awaiting report from private GI for previous workup. on levaquin/flagyl day 3 , IVF. GI on board. will d/c IVF if tolerating diet. 2. Acute normocytic anemia- likely dilutional. Hgb stable 3. HTN- currently normotensive off medications. hold oral agents for now 4. DVT ppx- hep sq
--- NOTE | 2017-03-16 18:16 | PN ---
Physical Exam: SUBJECTIVE: Patient seen and examined at bedside. States that she had 2 episodes of emesis last night, received Zofran. Today pt's appetite is still low , however she is tolerating her diet without emesis. On low residue diet. OBJECTIVE: Vital Signs Period Temp Pulse Resp BP Sys/Harvey Pulse Ox Last 24 Hr 98.0 F-98.4 F 74-89 17-20 106-126/64-78 95 GENERAL: The patient is awake, alert, and fully oriented, in no acute distress. HEAD: Normal with no signs of trauma. EYES: PERRL, extraocular movements intact, sclera anicteric, conjunctiva clear. No ptosis. ENT: Ears normal, nares patent, oropharynx clear without exudates, moist mucous membranes. NECK: Trachea midline, full range of motion, supple. LUNGS: Breath sounds equal, clear to auscultation bilaterally, no wheezes, no crackles, no accessory muscle use. HEART: Regular rate and rhythm, S1, S2 without murmur, rub or gallop. ABDOMEN: mild abdominal tenderness elicited in RUQ, RLQ, mid epigastric region. nondistended, normoactive bowel sounds, no guarding, no rebound, no hepatosplenomegaly, no masses. EXTREMITIES: 2+ posterior tibial pulses, warm, well-perfused, no edema. Mild swelling L ankle, anteriorly. "sunrash" improving on upper extremities bilaterally, no longer itchy NEUROLOGICAL: Cranial nerves II through XII grossly intact. Laboratory Results - last 24 hr 03/16/17 03/16/17 07:30 07:30 WBC 5.3 RBC 4.15 Hgb 10.4 L Hct 31.3 L MCV 75.4 L MCH 25.1 L MCHC 33.3 RDW 14.4 Plt Count 277 MPV 10.1 Sodium 138 Potassium 3.8 Chloride 106 Carbon Dioxide 25 Anion Gap 7 L BUN 6 L D Creatinine 0.6 Random Glucose 108 H Calcium 7.6 L Active Medications Generic Name Dose Route Start Last Admin Trade Name Freq PRN Reason Stop Dose Admin Heparin Sodium (Porcine) 5,000 unit 03/14/17 22:00 03/16/17 10:28 Heparin - SQ 5,000 unit BID BLAINE Administration Dextrose/Sodium Chloride 1,000 mls @ 83 mls/hr 03/14/17 18:00 03/16/17 06:50 D5-1/2ns - IV 83 mls/hr ASDIR BLAINE Administration Levofloxacin 100 mls @ 100 mls/hr 03/15/17 17:00 03/16/17 09:03 Levaquin 500 Mg Premixed Ivpb - IVPB 100 mls/hr DAILY BLAINE Administration Pantoprazole Sodium 40 mg/ 100 mls @ 200 mls/hr 03/15/17 15:00 03/16/17 10:28 Sodium Chloride IVPB 200 mls/hr DAILY BLAINE Administration Morphine Sulfate 2 mg 03/14/17 17:57 03/14/17 20:24 Morphine Injection - IVPUSH 2 mg Q4H PRN Administration PAIN Ondansetron HCl 4 mg 03/15/17 19:02 03/15/17 22:34 Zofran Injection IVPUSH 4 mg Q6H PRN Administration NAUSEA AND/OR VOMITING ASSESSMENT/PLAN: 46 y/o F with PMH of recurrent colitis, h/o SBO, ovarian cyst and HTN, who was admitted with 3 day history of diarrhea. Pt admitted for pancolitis. #Pancolitis secondary to possible IBD -Abdomen/pelvis CT: continuous concentric wall thickening involving length of colon, including rectum- consistent with colitis, mild ileal involvement, cystic structures in pelvic cul-de-sac -Continue Levaquin 500mg (Day3), Flagyl has been DC -elevated CRP 2.3. reveals inflammation -F/u with primary GI from [facility], Dr. Johnson to get additional records- message has been left, will fax papers to get medical records -F/u stool cx, ova and parasites -F/u if tolerating diet still tomorrow can d/c IVF -if no improvement, may need flex sig -On Zofran PRN for nausea #HTN-controlled #DVT prophylaxis Heparin 5000 SQ BID F/E/N D5 1/2 NS Low residue diet Monitor electrolytes Visit type - Emergency Visit Emergency Visit: No - New Patient This patient is new to me today: No - Critical Care Critical Care patient: No
--- NOTE | 2017-03-17 08:14 | PN ---
Teaching Attending Note Name of Resident: Frieda Palencia ATTENDING PHYSICIAN STATEMENT I saw and evaluated the patient. I reviewed the resident's note and discussed the case with the resident. I agree with the resident's findings and plan as documented. SUBJECTIVE: No specific complaints She states that she feels much better OBJECTIVE: Vitals noted ASSESSMENT AND PLAN: Appreciate specification consultant input Continue to attempt to advance diet Awaiting stool studies -- she has not had further diarrhea Change to po antibiotics as soon as possible See resident note for full details
[2017-03-17 08:27] LABS: MCH 24.4 pg (25.7-33.7); MCHC 32.4 g/dl (32.0-36.0); MEAN CELL VOLUME 75.2 fl (80-96); PLATELET COUNT 239 K/MM3 (134-434); RDW 14.4 % (11.6-15.6); WHITE BLOOD COUNT 5.2 K/mm3 (4.0-10.0)
[2017-03-17 08:37] LABS: ANION GAP 6 (8-16); CALCIUM 7.7 mg/dL (8.5-10.1); CO2 26 mmol/L (21-32); CREATININE 0.7 mg/dL (0.55-1.02); GLUCOSE,RANDOM 122 mg/dL (74-106)
[2017-03-17] MEDS ORDERED: SODIUM CHLORIDE 100 ML IVPB ONE (09:40)
[2017-03-17] MEDS ORDERED: PANTOPRAZOLE SODIUM 40 MG VIAL ONE (09:40)
[2017-03-17] MEDS: HEPARIN NA (PORCINE) 5,000 UNITS/ML 1ML VIAL SQ SCH (09:52)
[2017-03-17] MEDS: LEVOFLOXACIN 500 MG IVPB 100 ML IVPB SCH (09:52)
[2017-03-17] MEDS: PANTOPRAZOLE SODIUM 40 MG in SODIUM CHLORIDE 100 ML IVPB SCH (11:00)
--- NOTE | 2017-03-17 14:25 | DS ---
Physical Exam: SUBJECTIVE: Patient seen and examined at bedside today. Pt stated that she had multiple small BM's in the evening, without blood. Has been tolerating low residue diet, without nausea or emesis. OBJECTIVE: Vital Signs Period Temp Pulse Resp BP Sys/Harvey Pulse Ox Last 24 Hr 98.1 F-98.5 F 70-77 16-20 107-128/71-81 99 PHYSICAL EXAM GENERAL: The patient is awake, alert, and fully oriented, in no acute distress. HEAD: Normal with no signs of trauma. EYES: PERRL, extraocular movements intact, sclera anicteric, conjunctiva clear. ENT: Ears normal, nares patent, oropharynx clear without exudates, moist mucous membranes. NECK: Trachea midline, full range of motion, supple. LUNGS: Breath sounds equal, clear to auscultation bilaterally, no wheezes, no crackles, no accessory muscle use. HEART: Regular rate and rhythm, S1, S2 without murmur, rub or gallop. ABDOMEN: mild tenderness in epigastric region, normoactive bowel sounds, no guarding, no rebound, no hepatosplenomegaly, no masses. EXTREMITIES: 2+ posterior tibial pulses, warm, well-perfused, no edema. NEUROLOGICAL: Cranial nerves II through XII grossly intact. LABS 03/14/17 03/14/17 03/14/17 13:00 13:00 18:40 WBC 8.7 Hgb 12.4 Hct 39.0 MCV 76.3 L MCHC 31.8 L Eosinophils % Sodium 137 Potassium 4.4 Chloride 105 Carbon Dioxide 25 BUN 16 Creatinine 0.7 Random Glucose 92 Calcium 8.6 AST 17 ALT 31 Alkaline Phosphatase C-Reactive Protein 2.3 H Total Protein Albumin 03/15/17 03/15/17 03/16/17 06:35 06:35 07:30 WBC 5.3 Hgb 10.4 L Hct 33.8 31.3 L MCV 75.7 L 75.4 L MCHC 32.2 33.3 Eosinophils % 5.9 H Sodium 139 Potassium 3.9 Chloride 105 Carbon Dioxide 26 BUN 10 D Creatinine 0.6 Random Glucose 101 Calcium 7.5 L AST 14 L ALT 32 Alkaline Phosphatase 43 L D C-Reactive Protein Total Protein 6.2 L D Albumin 3.1 L D 03/16/17 03/17/17 03/17/17 07:30 06:40 06:40 WBC 5.2 Hgb 10.7 Hct 32.9 MCV 75.2 L MCHC 32.4 Eosinophils % Sodium 138 139 Potassium 3.8 4.3 Chloride 106 107 Carbon Dioxide 25 26 BUN 6 L D 7 Creatinine 0.6 0.7 Random Glucose 108 H 122 H Calcium 7.6 L 7.7 L AST ALT Alkaline Phosphatase C-Reactive Protein Total Protein Albumin Microbiology 03/16/17 12:00 Stool Escherichia coli 0157 Culture - Final NO GROWTH OF VIBRIO SPECIES OBTAINED NO GROWTH OF E COLI 0157 OBTAINED 03/16/17 09:00 Stool Clostridium difficile Antigen (ALEXY) - Final 03/16/17 09:00 Stool Clostridium difficile Toxin Assay - Final 03/16/17 12:00 Stool Salmonella/Shigella Culture - Preliminary 03/16/17 12:00 Stool Yersinia Culture - Preliminary NO ENTERIC PATHOGENS, 24 HOURS, ON PRIMARY PLATES NO ENTERIC PATHOGENS, 24 HOURS, ON PRIMARY PLATES IMAGING 03/14/17: Abdomen/Pelvis CT (with contrast): continuous wall thickening is noted involving the length of the colon including the rectum consistent with colitis. There is possible mild involvement of the ileum. No definite pericolonic/ perienteric edema or fluid accumulation is seen. Contiguous 4.9x3.3cm and 3.3x2.7cm cystic structures noted in R paramedian aspect of pelvic cul de sac. 3.3 x 2.3cm L adnexal cyst is visualized. No obvious associated soft tissue nodularity or thickened internal septation. S/p hysterectomy. No evidence of acute appendicitis. Liver, spleen, pancreas and gall bladder show no abnormality. 03/15/17: EKG: normal sinus rhythm HOSPITAL COURSE: Date of Admission:03/14/17 Date of Discharge: 03/17/17 Admit diagnosis: pancolitis Pre-admission course 46 yo F with significant PMHx of recurrent colitis, h/o SBO, ovarian cyst and HTN who presented with a 3 day history of diarrhea. She has had approx. 15 loose stools since 03/12/17. She stated that on the night prior to admission, she had one large bloody BM, and subsequent BM's with mild spotting. She endorsed subjective fevers and chills at this time. Patient has had chronic history of colitis with three admissions in past year. Most recently at [facility] in March of 2017. She sees Dr. Johnson (GI) at [facility], and states that her last colonoscopy (1 yr ago) was significant for polypectomy. Patient has not been worked up for colitis in past and is currently not on any UC meds at this time. Denies CP,DEMPSEY, SOB, palpitations, N/V. ER course was notable for: (1)CT abdomen and pelvis showing Pancolitis (2)Cipro/Flagyl (3)Dr. Dolan GI consult Hospital course Pancolitis was confirmed by Abdomen/Pelvis CT w/contrast, revealing continuous wall thickening involving the length of the colon, including rectum. As well as possible mild involvement of the ileum. Pt managed with Levaquin 500mg (three day course) /Flagyl 500mg (two day course). She will continue Levaquin upon discharge, continuing for five additional days to complete the course. Pt was also symptomatically managed on Zofran for nausea and IV NS fluids. Pt was seen by GI, and stool culture preliminary results revealed no enteric pathogens, no growth of vibrio species, or E.coli 0157. C.diff antigen toxin assay was also negative. Pt will follow up with a GI 1 week after discharge. Minutes to complete discharge: 32 Discharge Summary Reason For Visit: PANCOLITIS Current Active Problems Pancolitis (Acute) DVT prophylaxis (Chronic) GERD (gastroesophageal reflux disease) (Chronic) HTN (hypertension) (Chronic) Condition: Stable - Instructions Diet, Activity, Other Instructions: You were recently in the hospital since your colon was inflamed. You may resume activity as tolerated. Please take the following medication at home: Levaquin 500mg (one tablet) once a day for the next 5 days, starting tomorrow. You may resume your other home medications. Please follow-up with your primary care physician and Dr. Felder in a week, the gun perforator loader who saw you while you were in the hospital. If you develop any chest pain, shortness of breath, or any new symptoms, please go to the hospital. We hope you feel better soon. Referrals: Eder Felder DO [Staff Physician] - Disposition: HOME - Home Medications Comprehensive Discharge Medication List: Ambulatory Orders Losartan Potassium 0 mg PO DAILY 03/14/17 Pantoprazole Sodium 40 mg PO DAILY 03/14/17 Levofloxacin [Levaquin] 500 mg PO DAILY #5 tablet 03/17/17 This patient is new to me today: No Emergency Visit: No Critical Care patient: No - Discharge Referral Referred to [facility] No
[2017-03-17 14:32] VITALS: BP 128/87; PULSE 76; TEMP 98
== END 2017-03-17 15:05 | disposition home or self-care (01) | DRG 387 ==
LOC: JER 11:06 → JERBED 18:34 → J6S 21:52
PROVIDERS: ADMIT Internal Medicine; ATTEND Internal Medicine
DX: K51.00 Ulcerative (chronic) pancolitis without complications (principal); I10 Essential (primary) hypertension; K21.9 Gastro-esophageal reflux disease without esophagitis; N83.299 Other ovarian cyst, unspecified side; J45.909 Unspecified asthma, uncomplicated; D25.9 Leiomyoma of uterus, unspecified; D64.9 Anemia, unspecified; L55.9 Sunburn, unspecified; M25.579 Pain in unspecified ankle and joints of unspecified foot
CPT/HCPCS: 36415; 74177-TC; 80048; 80053; 81003; 83735; 84100; 85025; 85027; 85651; 86140; 86850; 86900; 86901; 87045; 87046; 87324; 87449; 93005; 93010; 97116-GP; 97161-GP; 99285-25; J1644

== ENCOUNTER 2017-10-29 04:46 | Emergency (ER) | payer OTHER ==
[2017-10-29 05:16] VITALS: BMI 32.6
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
[2017-10-29] MEDS ORDERED: methylPREDNISolone NA SUCC 125 MG/2 ML VIAL IVPB ONE (05:28)
[2017-10-29] MEDS ORDERED: SODIUM CHLORIDE 1,000 ML IV STA (05:28)
[2017-10-29] MEDS ORDERED: methylPREDNISolone NA SUCC 125 MG/2 ML VIAL ONE (05:42)
[2017-10-29] MEDS ORDERED: FAMOTIDINE 20 MG/50 ML IVPB 20 MG/50 ML MG IVPB ONE ×2 (05:43→10:09)
[2017-10-29 06:21] LABS: BASO % 0.4 % (0-2.0); EOS % 0.8 % (0-4.5); HEMATOCRIT 37.7 % (32.4-45.2); HEMOGLOBIN 12.5 GM/dL (10.7-15.3); LYMPH % 21.2 % (8-40); MCH 25.1 pg (25.7-33.7); MCHC 33.2 g/dl (32.0-36.0); MEAN CELL VOLUME 75.5 fl (80-96); MEAN PLT VOLUME 10.2 fl (7.5-11.1); NEUT % 71.6 % (42.8-82.8); PLATELET COUNT 240 K/MM3 (134-434); RDW 14.9 % (11.6-15.6); WHITE BLOOD COUNT 5.8 K/mm3 (4.0-10.0)
[2017-10-29 07:25] LABS: URINE APPEARANCE CLEAR; URINE BILIRUBIN NEGATIVE (<2.0 mg/dL); URINE BLOOD NEGATIVE (NEGATIVE); URINE COLOR STRAW; URINE GLUCOSE (UA) NEGATIVE (NEGATIVE); URINE KETONE NEGATIVE (NEGATIVE); URINE LEUK ESTERASE NEGATIVE (NEGATIVE); URINE NITRITE NEGATIVE (NEGATIVE); URINE PROTEIN NEGATIVE (NEGATIVE); URINE UROBILINOGEN NEGATIVE mg/dL (0.2-1.0)
--- NOTE | 2017-10-29 07:49 | PDOC ---
*Physical Exam - Vital Signs Last Vital Signs Temp Pulse Resp BP Pulse Ox 97.2 F L 84 20 118/77 100 10/29/17 05:03 10/29/17 05:03 10/29/17 05:03 10/29/17 05:03 10/29/17 05:03 - Physical Exam General Appearance: Yes: Appropriately Dressed. No: Apparent Distress HEENT: positive: Normal Voice Neck: positive: Supple Respiratory/Chest: negative: Respiratory Distress Gastrointestinal/Abdominal: positive: Tender (epigastrium, no ttp to RUQ, neg murpheys), Soft Musculoskeletal: negative: CVA Tenderness Integumentary: positive: Dry, Warm. negative: Hives Neurologic: positive: Fully Oriented, Alert, Normal Mood/Affect Heart Score/ECG Review - ECG Intrepretation Comment:: 10/29/17 11:30 Twelve-lead EKG was performed and reviewed by me. There is normal sinus rhythm with a normal rate. The axis is normal. The intervals are normal. There are no ST or T wave abnormalities. Impression: Normal twelve-lead EKG ED Treatment Course - LABORATORY CBC & Chemistry Diagram: 10/29/17 05:30 10/29/17 07:11 - ADDITIONAL ORDERS Additional order review: Laboratory Results 10/29/17 10/29/17 07:11 05:30 Sodium Cancelled Potassium Cancelled Chloride Cancelled Carbon Dioxide Cancelled Anion Gap Cancelled BUN Cancelled Creatinine Cancelled Creat Clearance w eGFR Cancelled Random Glucose Cancelled Calcium Cancelled Total Bilirubin Cancelled AST Cancelled ALT Cancelled Alkaline Phosphatase Cancelled Total Protein Cancelled Albumin Cancelled Lipase Cancelled Urine Color Straw Urine Appearance Clear Urine pH 5.0 Ur Specific [place] 1.005 Urine Protein Negative Urine Glucose (UA) Negative Urine Ketones Negative Urine Blood Negative Urine Nitrite Negative Urine Bilirubin Negative Urine Urobilinogen Negative Ur Leukocyte Esterase Negative 10/29/17 05:30 RBC 5.00 MCV 75.5 L MCHC 33.2 RDW 14.9 MPV 10.2 Neutrophils % 71.6 D Lymphocytes % 21.2 D Monocytes % 6.0 Eosinophils % 0.8 D Basophils % 0.4 - Medications Given in the ED: ED Medications Discontinued Medications Generic Name Dose Route Start Last Admin Trade Name Freq PRN Reason Stop Dose Admin Diphenhydramine HCl 25 mg 10/29/17 05:28 10/29/17 06:23 Benadryl Injection - IVPUSH 10/29/17 05:29 25 mg ONCE ONE Administration Sodium Chloride 1,000 mls @ 1,000 mls/hr 10/29/17 05:28 10/29/17 06:24 Normal Saline - IV 10/29/17 06:27 1,000 mls/hr ASDIR STA Administration Methylprednisolone Sodium Succinate 125 mg 10/29/17 05:28 10/29/17 06:24 Solu-Medrol - IVPB 10/29/17 05:29 125 mg ONCE ONE Administration Medical Decision Making - Medical Decision Making 10/29/17 07:42 Pt signed out to me at 7am 47 yo F, s/p multiple SBO, GERD, here w/ diffuse abd pain and hives. Hives since improved w/ appropriate meds. CBC unremarkable. Chem and CT pending 10/29/17 10:06 Pt s/p CT scan which was negative for SBO or other acute pathology. States she continues to have some epigastric pain at this time. Patient states she does have a history of GERD and states pain similar to her GERD. Had gastric ulcer in her 20s per pt. Takes omeprazole daily, but states pain worsened 4 days ago w / 1 e/o n/v, no change in BM, f/c. Has endoscopy scheduled for 11/06/17 with her GI. Patient states she developed hives this a.m. Has no known drug or food allergies. States she did take Gaviscon for the first time 3 nights ago. Hives since resolved w/ benadryl/pepcid/steroid in ED. Will continue to manage pain 10/29/17 11:14 Patient reports pain has significantly improved with zantac, sucralfate and magic mouthwash. Upon final review of labs, patient had no EKG done. Patient has no chest pain or shortness of breath and no history of CAD, stent or cath in the past. No recent stress test. Will perform ekg and if unremarkable, will dc. Patient has upcoming endoscopy. No recurrence of hives in ER and no angioedema. Upon discharge to take Benadryl, Zyrtec or Claritin as needed 10/29/17 11:29 EK NSR w/ no ST-T wave changes. Pt stable for discharge *DC/Admit/Observation/Transfer Diagnosis at time of Disposition: Hives, Epigastric pain - Discharge Dispostion Disposition: HOME Condition at time of disposition: Improved - Prescriptions Prescriptions: Ranitidine HCl [Zantac] 150 mg PO BID #14 tablet Sucralfate [Carafate -] 1 gm PO QID #28 tablet - Referrals Referrals: ON STAFF,NOT [Primary Care Provider] - - Patient Instructions Additional Instructions: Please take medications as directed and follow up with your bank compliance officer Regarding hives, take Benadryl every 6 hours as needed. If you have to go outside, take Zyrtec or Claritin once a day Refrain from gaviscon in the future - Post Discharge Activity
[2017-10-29 08:04] LABS: ALBUMIN 3.6 g/dl (3.4-5.0); ALK PHOS 59 U/L (45-117); ANION GAP 5 (8-16); BILIRUBIN,TOTAL 0.5 mg/dL (0.2-1.0); BLOOD UREA NITROGEN 14 mg/dL (7-18); CALCIUM 8.2 mg/dL (8.5-10.1); CHLORIDE 108 mmol/L (98-107); CO2 23 mmol/L (21-32); CREATININE 0.6 mg/dL (0.55-1.02); GLUCOSE,RANDOM 104 mg/dL (74-106); POTASSIUM 4.4 mmol/L (3.5-5.1); SGOT/AST 20 U/L (15-37); SGPT/ALT 35 U/L (12-78); SODIUM 136 mmol/L (136-145)
[2017-10-29] MEDS ORDERED: SUCRALFATE 1 GM TABLET (FP) PO ONE (09:56)
[2017-10-29] MEDS ORDERED: RANITIDINE HCL 150 MG TABLET (FP) PO ONE (09:56)
[2017-10-29] MEDS ORDERED: FAMOTIDINE IV 20 MG/12 ML VIAL IVPUSH SCH (10:00)
[2017-10-29] MEDS ORDERED: RANITIDINE HCL 150 MG TABLET (FP) ONE (10:09)
[2017-10-29] MEDS ORDERED: SUCRALFATE 1 GM TABLET (FP) ONE (10:09)
[2017-10-29] MEDS ORDERED: MAG HYDROX/ALH/SMC/DPHA/LIDO 240 ML MOUTHWASH MM ONE (10:13)
[2017-10-29 10:58] VITALS: BP 101/56; PULSE 75; TEMP 98.3
[2017-10-29] MEDS ORDERED: MAG HYDROX/ALH/SMC/DPHA/LIDO 240 ML MOUTHWASH MM SCH (12:00)
--- NOTE | 2017-10-30 11:37 | EKG ---
Test Reason : Blood Pressure : / mmHG Vent. Rate : 082 BPM Atrial Rate : 082 BPM P-R Int : 130 ms QRS Dur : 082 ms QT Int : 358 ms P-R-T Axes : 064 027 010 degrees QTc Int : 418 ms NORMAL SINUS RHYTHM NORMAL ECG WHEN COMPARED WITH ECG OF 15-MAR-2017 18:56, NO SIGNIFICANT CHANGE WAS FOUND Confirmed by KARRI MOODY MD ([id number]) on 10/30/2017 11:37:14 AM Referred By: Confirmed By:KARRI MOODY MD
== END 2017-10-29 11:55 | disposition home or self-care (01) ==
LOC: JER 04:46
DX: R10.84 Generalized abdominal pain (principal); L50.9 Urticaria, unspecified
CPT/HCPCS: 36415; 74177-TC; 80053; 81003; 85025; 93005; 93010; 99284-25; J7030

== ENCOUNTER → 2018-04-03 | Emergency (ER) | payer OTHER ==
[2018-04-03 22:12] VITALS: BP 147/96; PULSE 77; TEMP 98.1; BMI 34.0
== END | disposition left against medical advice (07) ==
LOC: JER 22:01
DX: Z53.21 Procedure and treatment not carried out due to patient leaving prior to being seen by health care provider (principal)
CPT/HCPCS: 99281-25